=== PATIENT | female | born 1975 | race African-American/Black ===

== ENCOUNTER → 2016-11-06 | Emergency (ER) | payer MEDICAID ==
[~2016-11-06] VITALS: Ht 157.5 cm; Wt 68.0 kg
[~2016-11-06] MED LIST: ABILIFY5 MG PO; BENADRYL25 MG PO; CIPRO500 MG PO; CLINDAMYCIN HC300 MG ORAL; LAMICTAL25 MG ORAL; NORCO 5-325 TA1 EACH PO; OCUFLOX5 ML OP; OMEPRAZOLE20 M2 ORAL; PEPCID40 MG PO; POLYTRIM EYE DR10 ML OP; RANITIDINE HCL150 MG PO; TRAMADOL HCL50 MG ORAL; ZOFRAN4 MG ORAL
[2016-11-06 09:40] VITALS: BP 99/67
[2016-11-06 10:50] LABS: BASOPHILS % (AUTO) 1.6 % (0.0-2.0); EOSINOPHILS % (AUTO) 0.2 % (0.0-3.0); LYMPHOCYTES % (AUTO) 22.1 % (20.0-45.0); MEAN CORPUSCULAR HEMOGLOBIN 30.8 PG (27.0-31.0); MEAN CORPUSCULAR VOLUME 93 FL (80-99); MEAN PLATELET VOLUME 5.9 FL (6.5-10.1); MONOCYTES % (AUTO) 5.4 % (1.0-10.0); NEUTROPHILS % (AUTO) 70.7 % (45.0-75.0); PLATELET COUNT 298 K/UL (150-450); RED BLOOD COUNT 4.86 M/UL (4.20-5.40); RED CELL DISTRIBUTION WIDTH 14.5 % (11.6-14.8); WHITE BLOOD COUNT 9.9 K/UL (4.8-10.8)
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
== END | disposition home or self-care (01) ==
LOC: EMR 10:31
DX: L03.211 Cellulitis of face (principal); Z88.6 Allergy status to analgesic agent; R51 Headache; M54.30 Sciatica, unspecified side
CPT/HCPCS: 36415; 85025; 96374; S0077

== ENCOUNTER 2018-03-04 10:05 | Emergency (ER) | payer MEDICAID ==
[~2018-03-04] VITALS: Ht 157.5 cm; Wt 67.6 kg
[2018-03-04] MEDS ORDERED: Mylanta II UD 30ml ORAL ONE (10:45)
[2018-03-04] MEDS ORDERED: Dicyclomine HCl 10mg/5ml oral soln ORAL ONE (10:45)
[2018-03-04] MEDS ORDERED: Lidocaine 2% Visc 15ml soln ORAL ONE (10:45)
--- NOTE | 2018-03-04 11:01 | Emergency Room Report ---
History of Present Illness General Chief Complaint: Nausea Source: Patient Present Illness HPI 42-year-old male complaining of abdominal pain with nausea and vomiting. Patient states she was prescribed ibuprofen by her dentist after she had a tooth procedure last week. States she she has acid reflux and knows not to take ibuprofen but took it anyways. Notes epigastric burning pain, 9 out of 10 , nonradiating with multiple episodes of nausea and vomiting. Denies chest pain or shortness of breath. Denies fevers or chills. No other aggravating relieving factors. Denies any other associated symptoms Allergies: Coded Allergies: IBUPROFEN (Verified Allergy, Severe, 09/13/13) Patient History Past Medical History: ulcer, GERD Past Surgical History: none Pertinent Family History: none Social History: Denies: smoking, alcohol use, drug use Now: No Immunizations: UTD Reviewed Nursing Documentation: PMH: Agreed; PSxH: Agreed Nursing Documentation-PMH Past Medical History: No History, Except For Hx Cardiac Problems: Yes - anemia Hx Cancer: No Hx Gastrointestinal Problems: Yes - ulcer Hx Neurological Problems: Yes - sciatica, numbness , tingling hands and feet Hx Headaches: Yes Review of Systems All Other Systems: negative except mentioned in HPI Physical Exam Vital Signs Date Time Temp Pulse Resp B/P (MAP) Pulse Ox O2 Delivery O2 Flow Rate FiO2 03/04/18 10:14 98.3 98 18 114/59 97 Room Air 98.2 Sp02 EP Interpretation: reviewed, normal General Appearance: no apparent distress, alert, GCS 15, non-toxic Head: normocephalic, atraumatic Eyes: bilateral eye normal inspection, bilateral eye PERRL ENT: hearing grossly normal, normal pharynx, no angioedema, normal voice Neck: full range of motion, supple/symm/no masses Respiratory: chest non-tender, lungs clear, normal breath sounds, speaking full sentences Cardiovascular #1: regular rate, rhythm, no edema Cardiovascular #2: 2+ carotid (R), 2+ carotid (L), 2+ radial (R), 2+ radial (L) , 2+ dorsalis pedis (R), 2+ dorsalis pedis (L) Gastrointestinal: normal bowel sounds, soft, non-distended, no guarding, no rebound, tenderness - epigastric Rectal: deferred Genitourinary: normal inspection, no CVA tenderness Musculoskeletal: back normal, gait/station normal, normal range of motion, non- tender Neurologic: alert, oriented x3, responsive, motor strength/tone normal, sensory intact, speech normal Psychiatric: judgement/insight normal, memory normal, mood/affect normal, no suicidal/homicidal ideation Reflexes: 3+ bicep (R), 3+ bicep (L), 3+ tricep (R), 3+ tricep (L), 3+ knee (R) , 3+ knee (L) Skin: normal color, no rash, warm/dry, well hydrated Lymphatic: no adenopathy Medical Decision Making Diagnostic Impression: Primary Impression: Gastritis Qualified Codes: K29.01 - Acute gastritis with bleeding ER Course Hospital Course 42-year-old F presents to ED with epigastric pain with N/V. differential diagnosis: gastritis, SBO, cholecystits Clinical course Patient placed on stretcher. On secured entrance monitor. After initial history and physical I ordered labs, IV fluids, Zofran and pepcid Labs - no leukocytosis, no electrolyte abnormalities, LFTs normal, UA unremarkable continue to have nausea and vomiting, some pain. I ordered additional Zofran, Protonix, morphine x 1 Upon reassessment, patient states pain has improved. Symptoms likely exacerbated by taking ibuprofen which she knows not to take because of her gastritis. Patient safe for discharge I feel this is a highly complex case requiring extensive working including EKG/ Rhythm strip, Xray/CT/US, Blood/urine lab work, repeat exams while in ED, and administration of strong opiates/narcotics for pain control, admission to hospital or close patient follow up. Diagnosis - gastritis Stable and discharged to home with prescriptions for Zantac, Zofran. Followup with PMD. Return to ED if symptoms recur or worsen Labs Test 03/04/18 10:42 White Blood Count 8.8 K/UL (4.8-10.8) Red Blood Count 4.83 M/UL (4.20-5.40) Hemoglobin 14.4 G/DL (12.0-16.0) Hematocrit 44.9 % (37.0-47.0) Mean Corpuscular Volume 93 FL (80-99) Mean Corpuscular Hemoglobin 29.8 PG (27.0-31.0) Mean Corpuscular Hemoglobin Concent 32.0 G/DL (32.0-36.0) Red Cell Distribution Width 13.6 % (11.6-14.8) Platelet Count 257 K/UL (150-450) Mean Platelet Volume 5.4 FL (6.5-10.1) Neutrophils (%) (Auto) 66.4 % (45.0-75.0) Lymphocytes (%) (Auto) 28.4 % (20.0-45.0) Monocytes (%) (Auto) 3.5 % (1.0-10.0) Eosinophils (%) (Auto) 0.6 % (0.0-3.0) Basophils (%) (Auto) 1.2 % (0.0-2.0) Urine Color Yellow Urine Appearance Slightly cloudy Urine pH 6 (4.5-8.0) Urine Specific [place] 1.020 (1.005-1.035) Urine Protein 2+ (NEGATIVE) Urine Glucose (UA) Negative (NEGATIVE) Urine Ketones 4+ (NEGATIVE) Urine Occult Blood 3+ (NEGATIVE) Urine Nitrite Negative (NEGATIVE) Urine Bilirubin Negative (NEGATIVE) Urine Urobilinogen 1 MG/DL (0.0-1.0) Urine Leukocyte Esterase 2+ (NEGATIVE) Urine RBC 15-20 /HPF (0 - 2) Urine WBC 2-4 /HPF (0 - 2) Urine Squamous Epithelial Cells Many /LPF (NONE/OCC) Urine Bacteria Few /HPF (NONE) Urine Mucus Moderate /LPF (NONE/OCC) Urine HCG, Qualitative Negative (NEGATIVE) Sodium Level 139 MMOL/L (136-145) Potassium Level 4.7 MMOL/L (3.5-5.1) Chloride Level 102 MMOL/L (98-107) Carbon Dioxide Level 25 MMOL/L (21-32) Anion Gap 12 mmol/L (5-15) Blood Urea Nitrogen 8 mg/dL (7-18) Creatinine 1.0 MG/DL (0.55-1.30) Estimat Glomerular Filtration Rate > 60 mL/min (>60) Glucose Level 98 MG/DL (74-106) Calcium Level 10.2 MG/DL (8.5-10.1) Total Bilirubin 0.6 MG/DL (0.2-1.0) Aspartate Amino Transf (AST/SGOT) 25 U/L (15-37) Alanine Aminotransferase (ALT/SGPT) 19 U/L (12-78) Alkaline Phosphatase 65 U/L (46-116) Total Protein 8.9 G/DL (6.4-8.2) Albumin 4.0 G/DL (3.4-5.0) Globulin 4.9 g/dL Albumin/Globulin Ratio 0.8 (1.0-2.7) Lipase 45 U/L (73-393) Last Vital Signs Date Time Temp Pulse Resp B/P (MAP) Pulse Ox O2 Delivery O2 Flow Rate FiO2 03/04/18 10:14 98.3 98 18 114/59 97 Room Air 98.2 Status: improved Disposition: HOME, SELF-CARE Condition: Stable Scripts Ranitidine Hcl* (ZANTAC*) 150 Mg Tablet 150 MG ORAL TWICE A DAY, #30 TAB Prov: Shady Sinclair MD 03/04/18 Ondansetron Odt* (ZOFRAN ODT*) 4 Mg Tab.rapdis 4 MG BC EVERY 6 HOURS PRN for Nausea & Vomiting, #30 TAB 0 Refills Prov: Shady Sinclair MD 03/04/18 Shady Sinclair MD March 04, 2018 11:01
[2018-03-04 11:02] VITALS: BP 114/59
[2018-03-04 11:12] LABS: BASOPHILS % (AUTO) 1.2 % (0.0-2.0); EOSINOPHILS % (AUTO) 0.6 % (0.0-3.0); HEMATOCRIT 44.9 % (37.0-47.0); HEMOGLOBIN 14.4 G/DL (12.0-16.0); LYMPHOCYTES % (AUTO) 28.4 % (20.0-45.0); MEAN CORPUSCULAR VOLUME 93 FL (80-99); MONOCYTES % (AUTO) 3.5 % (1.0-10.0); NEUTROPHILS % (AUTO) 66.4 % (45.0-75.0); PLATELET COUNT 257 K/UL (150-450); RED BLOOD COUNT 4.83 M/UL (4.20-5.40); RED CELL DISTRIBUTION WIDTH 13.6 % (11.6-14.8); WHITE BLOOD COUNT 8.8 K/UL (4.8-10.8)
[2018-03-04 11:17] LABS: APPEARANCE,URINE SLIGHTLY CLOUDY; BILIRUBIN, URINE NEGATIVE (NEGATIVE); GLUCOSE, URINE (UA) NEGATIVE (NEGATIVE); KETONES,URINE 4+ (NEGATIVE); LEUKOCYTE ESTERASE ,URINE 2+ (NEGATIVE); NITRITE,URINE NEGATIVE (NEGATIVE); PH,URINE 6 (4.5-8.0); PROTEIN,URINE 2+ (NEGATIVE); UROBILINOGEN,URINE 1 MG/DL (0.0-1.0)
[2018-03-04 11:21] LABS: COLOR,URINE YELLOW
[2018-03-04 11:23] LABS: ANION GAP 12 mmol/L (5-15); BLOOD UREA NITROGEN 8 mg/dL (7-18); CALCIUM 10.2 MG/DL (8.5-10.1); CARBON DIOXIDE 25 MMOL/L (21-32); CHLORIDE 102 MMOL/L (98-107); POTASSIUM 4.7 MMOL/L (3.5-5.1); SODIUM 139 MMOL/L (136-145)
[2018-03-04 11:35] LABS: ALANINE AMINOTRANSFERASE 19 U/L (12-78); ALBUMIN/GLOBULIN RATIO 0.8 (1.0-2.7); ALKALINE PHOSPHATASE 65 U/L (46-116); ASPARTATE AMINO TRANSFERASE 25 U/L (15-37); BILIRUBIN,TOTAL 0.6 MG/DL (0.2-1.0)
[2018-03-04] MEDS ORDERED: Morphine Sulfate 4mg/ml Inj ONE (11:41)
[2018-03-04] MEDS ORDERED: Morphine Sulfate 4mg/ml Inj IVP ONE (11:45)
[2018-03-04] MEDS ORDERED: Pantoprazole Inj IVP ONE (11:45)
[2018-03-04] MEDS ORDERED: ONDANSETRON ODT4 MG BC (12:15)
[2018-03-04] MEDS ORDERED: RANITIDINE HCL150 MG ORAL (12:15)
[2018-03-04 14:01] VITALS: BP 114/59
== END 2018-03-04 12:30 | disposition home or self-care (01) ==
LOC: EMR 11:56
DX: K29.70 Gastritis, unspecified, without bleeding (principal); Z88.6 Allergy status to analgesic agent
CPT/HCPCS: 36415; 80053; 81003; 81025; 83690; 85025; 96361; 96374; 96375; 96376; 99284; C9113; J2270; J2405; S0028

== ENCOUNTER 2018-05-28 19:23 | Emergency (ER) | payer MEDICAID ==
[~2018-05-28] VITALS: Ht 157.5 cm; Wt 67.6 kg
[~2018-05-28 19:23] MED LIST changes: +ONDANSETRON ODT4 MG BC; +RANITIDINE HCL150 MG ORAL
[2018-05-28 19:50] VITALS: BP 115/77
[2018-05-28] MEDS ORDERED: ZYRTEC10 MG ORAL (20:26)
[2018-05-28] MEDS ORDERED: FLONASE ALLERG9.9 ML NS (20:26)
[2018-05-28] MEDS ORDERED: PREDNISONE20 M1 PO (20:26)
--- NOTE | 2018-05-28 20:27 | Emergency Room Report ---
History of Present Illness General Chief Complaint: Earache Source: Patient Present Illness HPI 43-year-old female presents for right ear pain and pressure for 2 days. Associated symptoms include sore throat along with right ear pressure and pain that is worse with swallowing. Patient states that initial time of illness she had experienced nausea and vomiting and diarrhea which has since subsided. Patient is not taking medication for her symptoms and has no other physical please of this time.Denies any current n/v/f/c/d, abd pain, back pain, neck pain , photophobia, phonophobia, CP, SOB or headache. Allergies: Coded Allergies: IBUPROFEN (Verified Allergy, Severe, 09/13/13) Patient History Past Medical History: see triage record Last Menstrual Period: 05/23/18 Now: No Reviewed Nursing Documentation: PMH: Agreed; PSxH: Agreed Nursing Documentation-PMH Hx Cardiac Problems: Yes - anemia Hx Cancer: No Hx Gastrointestinal Problems: Yes - ulcer Hx Neurological Problems: Yes - sciatica, numbness , tingling hands and feet Hx Headaches: Yes Review of Systems All Other Systems: negative except mentioned in HPI Physical Exam Vital Signs Date Time Temp Pulse Resp B/P (MAP) Pulse Ox O2 Delivery O2 Flow Rate FiO2 05/28/18 19:30 98.6 82 18 127/80 98 Room Air 98.6 General Appearance: no apparent distress, alert, GCS 15, non-toxic Head: normocephalic, atraumatic Eyes: bilateral eye normal inspection, bilateral eye PERRL ENT: hearing grossly normal, normal pharynx, no angioedema, normal voice, TMs + canals normal, uvula midline Neck: full range of motion, supple, no meningismus, supple/symm/no masses Respiratory: chest non-tender, lungs clear, normal breath sounds, speaking full sentences Cardiovascular #1: regular rate, rhythm, no edema Gastrointestinal: normal bowel sounds, non tender, soft, non-distended, no guarding, no rebound Musculoskeletal: back normal, gait/station normal Neurologic: alert, oriented x3, responsive, motor strength/tone normal, sensory intact, speech normal Skin: normal color, no rash, warm/dry, well hydrated Lymphatic: adenopathy - Right cervical anterior lymphnodes Medical Decision Making PA Attestation Dr. Schofield my supervising physician with whom patient management has been discussed with. Diagnostic Impression: Primary Impression: Acute viral syndrome ER Course Pt. presents to the ED c/o Right ear pain and right sided sore throat Differential includes viral pharyngitis, AOM, AOE, viral syndrome, bacterial pharyngitis, peritonsillar abscess, tonsils stone, and meningitis Vital signs: are WNL, pt. is afebrile H&PE are most consistent with Viral syndrome ORDERS: none required at this time, the diagnosis is clinical ED INTERVENTIONS: none required at this time. DISCHARGE: At this time pt. is stable for d/c to home. Will provide printed patient care instructions, and any necessary prescriptions. Care plan and follow up instructions have been discussed with the patient prior to discharge. Last Vital Signs Date Time Temp Pulse Resp B/P (MAP) Pulse Ox O2 Delivery O2 Flow Rate FiO2 05/28/18 19:30 98.6 82 18 127/80 98 Room Air 98.6 Disposition: HOME, SELF-CARE Condition: Stable Scripts Prednisone (Prednisone) 20 Mg Tablet 20 MG PO DAILY for 3 Days, #3 TAB Prov: Olga Londono 05/28/18 Cetirizine Hcl* (ZYRTEC*) 10 Mg Tablet 10 MG ORAL DAILY, #10 TAB 0 Refills Prov: Olga Londono 05/28/18 Fluticasone Propionate (Flonase Allergy Relief) 9.9 Ml [place].susp 2 SPRAYS NS DAILY for 7 Days, #10 ML Prov: Olga Londono 05/28/18 Patient Instructions: Viral Respiratory Infection Additional Instructions: Take medication as directed. Stop medication if any rash develops and return to clinic immediately. Go to the ER if any SOB or adverse reactions occur from medication. Use Tylenol if any fever or pain develop. Return sooner if no improvement within 3-5 days. If sxs worsen or don't improve, please return sooner. Go to the ER if you develop SOB, CP, Rash, photophobia, neck pain, throat swelling occur, go to the ER immediately. Olga Londono May 28, 2018 20:27
[2018-05-28 22:20] VITALS: BP_SYST 137; BP_SYST 138; BP_DIAS 85
[2018-05-28] MEDS ORDERED: Acetaminophen 500mg (ES) tab ORAL ONE (22:30)
== END 2018-05-28 22:30 | disposition home or self-care (01) ==
LOC: EMR 20:49
DX: B34.9 Viral infection, unspecified (principal); Z87.11 Personal history of peptic ulcer disease; Z88.6 Allergy status to analgesic agent
CPT/HCPCS: 99284

== ENCOUNTER 2018-08-06 17:11 | Emergency (ER) | payer MEDICAID ==
[~2018-08-06] VITALS: Ht 157.5 cm; Wt 64.4 kg
[~2018-08-06 17:11] MED LIST changes: +FLONASE ALLERG9.9 ML NS; +PREDNISONE20 M1 PO; +ZYRTEC10 MG ORAL
[2018-08-06] MEDS ORDERED: Lidocaine 2% Visc 15ml soln ORAL ONE (17:30)
[2018-08-06] MEDS ORDERED: Mylanta II UD 30ml ORAL ONE (17:30)
[2018-08-06 17:42] VITALS: BP 149/86
--- NOTE | 2018-08-06 17:48 | Emergency Room Report ---
History of Present Illness General Chief Complaint: Abdominal Pain Source: Medical Record Present Illness HPI 43 YO Female presents to the ED C/O 07/16 in severity epigastric abdominal pain. with nausea and vomiting since Saturday. pt. denies fevers, chills recent travel or other ill contacts. Pt. reports that she was smoking marijuana and drinking alcohol prior to onset of her symptoms. Patient denies blood in the vomit or in her stool. Patient denies black tarry stools. Patient does report history of gastritis. She states that she has been unable to keep down food or water she also states that she attempted to take Zofran at home which was unsuccessful as she threw it up. Pt. denies . Denies CP, SOB, palpitations, Sudden onset [place], recent Head Trauma, Dizziness, or syncope. Allergies: Coded Allergies: IBUPROFEN (Verified Allergy, Severe, 09/13/13) Patient History Past Medical History: see triage record Past Surgical History: none Pertinent Family History: none Last Menstrual Period: 07/23/18 Reviewed Nursing Documentation: PMH: Agreed; PSxH: Agreed Nursing Documentation-PMH Past Medical History: No History, Except For Hx Cardiac Problems: No - anemia Hx Cancer: No Hx Gastrointestinal Problems: No - ulcer Hx Neurological Problems: No - sciatica, numbness , tingling hands and feet Hx Headaches: Yes Review of Systems All Other Systems: negative except mentioned in HPI Physical Exam Vital Signs Date Time Temp Pulse Resp B/P (MAP) Pulse Ox O2 Delivery O2 Flow Rate FiO2 08/06/18 17:15 82 18 149/86 98 Room Air Sp02 EP Interpretation: reviewed, normal General Appearance: alert, GCS 15, non-toxic, moderate distress Head: normocephalic, atraumatic Eyes: bilateral eye normal inspection, bilateral eye PERRL ENT: hearing grossly normal, normal voice Neck: full range of motion Respiratory: chest non-tender, lungs clear, normal breath sounds, speaking full sentences Cardiovascular #1: regular rate, rhythm Gastrointestinal: normal bowel sounds, soft, no peritonitis, non-distended, no guarding, tenderness - generalized ttp Rectal: deferred Genitourinary: normal inspection, no CVA tenderness Musculoskeletal: back normal, gait/station normal, normal range of motion, non- tender Neurologic: alert, oriented x3, responsive, motor strength/tone normal, sensory intact, normal gait, speech normal, grossly normal Psychiatric: judgement/insight normal Skin: normal color, no rash, warm/dry, well hydrated Medical Decision Making PA Attestation Dr. Brown is my supervising Physician whom patient management has been discussed with. Diagnostic Impression: Primary Impression: Dehydration, mild Additional Impression: Vomiting Qualified Codes: R11.2 - Nausea with vomiting, unspecified ER Course 43 YO Female presents to the ED C/O 07/16 in severity epigastric abdominal pain. with nausea and vomiting since Saturday. pt. denies fevers, chills recent travel or other ill contacts. Pt. reports that she was smoking marijuana and drinking alcohol prior to onset of her symptoms. Patient denies blood in the vomit or in her stool. Patient denies black tarry stools. Patient does report history of gastritis. She states that she has been unable to keep down food or water she also states that she attempted to take Zofran at home which was unsuccessful as she threw it up. Pt. denies . Denies CP, SOB, palpitations, Sudden onset [place], recent Head Trauma, Dizziness, or syncope. Ddx considered but are not limited to Acute appy, diarrhea, hypovolemia/ dehydration, UC, PUD, GE, pancreatitis, gallstones, , cannabinoid induced vomiting. Vital signs: are WNL, pt. 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 ORDERS: -CBC, CMP, lipase: unremarkable. elevated WBC's at 11.7 -UDS and Hcg: Pt.was not able to provide urine, and wanted to be D/c rather than wait for completion of work-up including urine testing. 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 -Pt. is feeling better and is requesting to be d/c to go home without providing Urine. urine results for the most part would not change my management. will d/c with rx that are safe during just in case that is the cause of her symptoms. DISCHARGE: At this time pt. is stable for d/c to home. Will provide printed patient care instructions, and any necessary prescriptions. Care plan and follow up instructions have been discussed with the patient prior to discharge. Labs Test 08/06/18 17:30 White Blood Count 11.7 K/UL (4.8-10.8) Red Blood Count 4.73 M/UL (4.20-5.40) Hemoglobin 14.6 G/DL (12.0-16.0) Hematocrit 44.4 % (37.0-47.0) Mean Corpuscular Volume 94 FL (80-99) Mean Corpuscular Hemoglobin 30.9 PG (27.0-31.0) Mean Corpuscular Hemoglobin Concent 32.9 G/DL (32.0-36.0) Red Cell Distribution Width 14.0 % (11.6-14.8) Platelet Count 342 K/UL (150-450) Mean Platelet Volume 5.5 FL (6.5-10.1) Neutrophils (%) (Auto) 83.4 % (45.0-75.0) Lymphocytes (%) (Auto) 14.0 % (20.0-45.0) Monocytes (%) (Auto) 1.7 % (1.0-10.0) Eosinophils (%) (Auto) 0.1 % (0.0-3.0) Basophils (%) (Auto) 0.8 % (0.0-2.0) Sodium Level 141 MMOL/L (136-145) Potassium Level 4.0 MMOL/L (3.5-5.1) Chloride Level 105 MMOL/L (98-107) Carbon Dioxide Level 27 MMOL/L (21-32) Anion Gap 9 mmol/L (5-15) Blood Urea Nitrogen 10 mg/dL (7-18) Creatinine 1.1 MG/DL (0.55-1.30) Estimat Glomerular Filtration Rate 54.5 mL/min (>60) Glucose Level 141 MG/DL (74-106) Calcium Level 9.9 MG/DL (8.5-10.1) Total Bilirubin 0.8 MG/DL (0.2-1.0) Aspartate Amino Transf (AST/SGOT) 25 U/L (15-37) Alanine Aminotransferase (ALT/SGPT) 20 U/L (12-78) Alkaline Phosphatase 77 U/L (46-116) Total Protein 8.8 G/DL (6.4-8.2) Albumin 4.1 G/DL (3.4-5.0) Globulin 4.7 g/dL Albumin/Globulin Ratio 0.9 (1.0-2.7) Lipase 47 U/L (73-393) Last Vital Signs Date Time Temp Pulse Resp B/P (MAP) Pulse Ox O2 Delivery O2 Flow Rate FiO2 08/06/18 17:15 82 18 149/86 98 Room Air Disposition: HOME, SELF-CARE Condition: Stable Scripts Promethazine Hcl* (PHENERGAN*) 25 Mg Tablet 25 MG ORAL Q6H, #9 TAB 0 Refills Prov: Ricarda Reynoso 08/06/18 Patient Instructions: Abdominal Pain, Adult, Nausea and Vomiting, Adult, Easy- to-Read Additional Instructions: Take medications as directed. Refrain from Cannabis use. Follow up with a Primary Care Provider in 3-5 days, even if your symptoms have resolved. Return sooner to ED if new symptoms occur, or current symptoms become worse. - Please note that this Emergency Department Report was dictated using [employer] informatics technology software, occasionally this can lead to erroneous entry secondary to interpretation by the dictation equipment. Ricarda Reynoso Aug 06, 2018 17:48
[2018-08-06 17:50] LABS: ANION GAP 9 mmol/L (5-15); BLOOD UREA NITROGEN 10 mg/dL (7-18); CALCIUM 9.9 MG/DL (8.5-10.1); CARBON DIOXIDE 27 MMOL/L (21-32); CHLORIDE 105 MMOL/L (98-107); CREATININE 1.1 MG/DL (0.55-1.30); SODIUM 141 MMOL/L (136-145)
[2018-08-06 17:54] LABS: BASOPHILS % (AUTO) 0.8 % (0.0-2.0); EOSINOPHILS % (AUTO) 0.1 % (0.0-3.0); HEMATOCRIT 44.4 % (37.0-47.0); HEMOGLOBIN 14.6 G/DL (12.0-16.0); MEAN CORPUSCULAR VOLUME 94 FL (80-99); MONOCYTES % (AUTO) 1.7 % (1.0-10.0); NEUTROPHILS % (AUTO) 83.4 % (45.0-75.0); PLATELET COUNT 342 K/UL (150-450); RED BLOOD COUNT 4.73 M/UL (4.20-5.40); WHITE BLOOD COUNT 11.7 K/UL (4.8-10.8)
[2018-08-06 17:55] LABS: ALANINE AMINOTRANSFERASE 20 U/L (12-78); ALBUMIN 4.1 G/DL (3.4-5.0); ALBUMIN/GLOBULIN RATIO 0.9 (1.0-2.7); ALKALINE PHOSPHATASE 77 U/L (46-116); ASPARTATE AMINO TRANSFERASE 25 U/L (15-37); BILIRUBIN,TOTAL 0.8 MG/DL (0.2-1.0)
[2018-08-06] MEDS ORDERED: LORazepam Inj 2mg/ml 1ml IV ONE (18:15)
[2018-08-06] MEDS ORDERED: PHENERGAN25 M1 ORAL (19:22)
[2018-08-06 20:10] VITALS: BP 138/81
== END 2018-08-06 20:10 | disposition home or self-care (01) ==
LOC: EMR 18:01
DX: E86.0 Dehydration (principal); R11.2 Nausea with vomiting, unspecified; R10.13 Epigastric pain; Z88.6 Allergy status to analgesic agent
CPT/HCPCS: 80053; 83690; 85025; 96361; 96374; 96375; 99284; J2405; S0028

== ENCOUNTER 2018-09-22 19:40 | Emergency (ER) | payer MEDICAID ==
[~2018-09-22] VITALS: Ht 157.5 cm; Wt 72.6 kg
[~2018-09-22 19:40] MED LIST changes: +DICYCLOMINE HCL10 MG PO; +PHENERGAN25 M1 ORAL
[2018-09-22 20:49] VITALS: BP 132/90
--- NOTE | 2018-09-22 21:04 | Emergency Room Report ---
History of Present Illness General Chief Complaint: Abdominal Pain Source: Patient Present Illness HPI Patient presents with reports of epigastric pain nausea vomiting Patient feels that her stomach is on fire is what she reports denies any shortness of breath denies any back or flank pain Symptoms ongoing for the past several days Denies any lower abdominal pain patient points to the epigastric region for the discomfort Has not had previous endoscopy Reports other imaging study which sounds to be oral contrast CT There was also reported initially of tinge of blood in her vomit Allergies: Coded Allergies: IBUPROFEN (Verified Allergy, Severe, 09/13/13) Patient History Past Medical History: see triage record Pertinent Family History: none Last Menstrual Period: 08/2018 Reviewed Nursing Documentation: PMH: Agreed; PSxH: Agreed Nursing Documentation-PMH Past Medical History: No History, Except For Hx Cardiac Problems: No - anemia Hx Cancer: No Hx Gastrointestinal Problems: Yes - ULCERS Hx Neurological Problems: No - sciatica, numbness , tingling hands and feet Hx Headaches: Yes Review of Systems All Other Systems: negative except mentioned in HPI Physical Exam Vital Signs Date Time Temp Pulse Resp B/P (MAP) Pulse Ox O2 Delivery O2 Flow Rate FiO2 09/22/18 20:06 98.2 90 16 132/90 95 Room Air Sp02 EP Interpretation: reviewed, normal General Appearance: well appearing, no apparent distress Head: normocephalic, atraumatic Eyes: bilateral eye PERRL, bilateral eye EOMI ENT: hearing grossly normal, normal pharynx, TMs + canals normal, uvula midline Neck: full range of motion, supple, no meningismus, no bony tend Respiratory: lungs clear, normal breath sounds, no rhonchi, no respiratory distress, no retraction, no accessory muscle use Cardiovascular #1: normal peripheral pulses, regular rate, rhythm, no edema, no gallop, no JVD, no murmur Gastrointestinal: normal bowel sounds, non tender, soft, no mass, no organomegaly, non-distended, no guarding, no hernia, no pulsatile mass, no rebound Genitourinary: no CVA tenderness Musculoskeletal: normal inspection Neurologic: oriented x3, responsive, washing machine striper III-XII nml as tested, motor strength/ tone normal, sensory intact Psychiatric: mood/affect normal Skin: normal color, no rash, warm/dry, palpation normal Lymphatic: normal inspection, no adenopathy Medical Decision Making Diagnostic Impression: Primary Impression: UTI (urinary tract infection) Additional Impression: Nausea and vomiting in adult patient ER Course With the patient's history and examination, multiple differentials considered, including but not limited to , ectopic , ovarian torsion, gastritis, cholecystitis, pancreatitis, appendicitis Patient's blood work initiated Further acute intervention with multiple IV medications provided Patient also reported to the nurse that she wanted some assistance in helping and benzodiazepine was provided On repeat evaluation patient reports that she is not happy that she did not receive her usual morphine dosing, she also would like to go to sleep and is not happy regarding not receiving further medications for that I discussed with her the importance of close outpatient follow-up, her statement that she did not receive her usual morphine dosing is concerning to me Patient was initially being placed in for admission for UTI questionable early pyelonephritis and decreased oral intake, however patient reports that she wants to go home does not want to be here She remains hemodynamically stable and was discharged on antibiotics, Labs Test 09/22/18 21:00 09/22/18 21:15 White Blood Count 11.3 K/UL (4.8-10.8) Red Blood Count 4.92 M/UL (4.20-5.40) Hemoglobin 14.9 G/DL (12.0-16.0) Hematocrit 45.7 % (37.0-47.0) Mean Corpuscular Volume 93 FL (80-99) Mean Corpuscular Hemoglobin 30.4 PG (27.0-31.0) Mean Corpuscular Hemoglobin Concent 32.7 G/DL (32.0-36.0) Red Cell Distribution Width 13.6 % (11.6-14.8) Platelet Count 314 K/UL (150-450) Mean Platelet Volume 6.3 FL (6.5-10.1) Neutrophils (%) (Auto) 76.7 % (45.0-75.0) Lymphocytes (%) (Auto) 19.7 % (20.0-45.0) Monocytes (%) (Auto) 2.8 % (1.0-10.0) Eosinophils (%) (Auto) 0.1 % (0.0-3.0) Basophils (%) (Auto) 0.7 % (0.0-2.0) Prothrombin Time 10.8 SEC (9.30-11.50) Prothromb Time International Ratio 1.0 (0.9-1.1) Activated Partial Thromboplast Time 29 SEC (23-33) Sodium Level 142 MMOL/L (136-145) Potassium Level 3.4 MMOL/L (3.5-5.1) Chloride Level 101 MMOL/L (98-107) Carbon Dioxide Level 29 MMOL/L (21-32) Anion Gap 12 mmol/L (5-15) Blood Urea Nitrogen 8 mg/dL (7-18) Creatinine 1.0 MG/DL (0.55-1.30) Estimat Glomerular Filtration Rate > 60 mL/min (>60) Glucose Level 113 MG/DL (74-106) Calcium Level 10.1 MG/DL (8.5-10.1) Total Bilirubin 0.7 MG/DL (0.2-1.0) Aspartate Amino Transf (AST/SGOT) 15 U/L (15-37) Alanine Aminotransferase (ALT/SGPT) 19 U/L (12-78) Alkaline Phosphatase 66 U/L (46-116) Troponin I 0.008 ng/mL (0.000-0.056) Total Protein 8.7 G/DL (6.4-8.2) Albumin 3.8 G/DL (3.4-5.0) Globulin 4.9 g/dL Albumin/Globulin Ratio 0.8 (1.0-2.7) Lipase 50 U/L (73-393) Human Chorionic Gonadotropin, Quant 1 mIU/mL (1-6) Urine Color Brown Urine Appearance Slightly cloudy Urine pH 5 (4.5-8.0) Urine Specific [place] 1.025 (1.005-1.035) Urine Protein 2+ (NEGATIVE) Urine Glucose (UA) Negative (NEGATIVE) Urine Ketones 3+ (NEGATIVE) Urine Blood 3+ (NEGATIVE) Urine Nitrite Positive (NEGATIVE) Urine Bilirubin Negative (NEGATIVE) Urine Urobilinogen 1 MG/DL (0.0-1.0) Urine Leukocyte Esterase 1+ (NEGATIVE) Urine RBC 2-4 /HPF (0 - 2) Urine WBC 0-2 /HPF (0 - 2) Urine Squamous Epithelial Cells Occasional /LPF Urine Calcium Oxalate Crystals Few /LPF (NONE) Urine Bacteria Moderate /HPF (NONE) Urine Mucus Moderate /LPF (NONE/OCC) Last Vital Signs Date Time Temp Pulse Resp B/P (MAP) Pulse Ox O2 Delivery O2 Flow Rate FiO2 09/22/18 20:06 98.2 90 16 132/90 95 Room Air Status: improved Disposition: HOME, SELF-CARE Condition: Improved Scripts Ondansetron (Zofran) 4 Mg Tablet 4 MG ORAL Q8HR PRN for Nausea & Vomiting, #12 TAB Prov: Danny Seo DO 09/22/18 Cephalexin* (KEFLEX*) 500 Mg Capsule 500 MG ORAL EVERY 6 HOURS for 7 Days, CAP Prov: Danny Seo DO 09/22/18 Additional Instructions: Patient is provided with the discharge instructions notified to follow up with primary doctor in the next 2-3 days otherwise return to the er with any worsening symptoms. Please note that this report is being documented using [employer] technology. This can lead to erroneous entry secondary to incorrect interpretation by the dictating instrument. Danny Seo DO Sep 22, 2018 21:04
[2018-09-22] MEDS ORDERED: LORazepam Inj 2mg/ml 1ml IV ONE (21:30)
[2018-09-22 21:31] LABS: BASOPHILS % (AUTO) 0.7 % (0.0-2.0); EOSINOPHILS % (AUTO) 0.1 % (0.0-3.0); HEMATOCRIT 45.7 % (37.0-47.0); HEMOGLOBIN 14.9 G/DL (12.0-16.0); LYMPHOCYTES % (AUTO) 19.7 % (20.0-45.0); MEAN CORPUSCULAR VOLUME 93 FL (80-99); MONOCYTES % (AUTO) 2.8 % (1.0-10.0); NEUTROPHILS % (AUTO) 76.7 % (45.0-75.0); PLATELET COUNT 314 K/UL (150-450); RED BLOOD COUNT 4.92 M/UL (4.20-5.40); RED CELL DISTRIBUTION WIDTH 13.6 % (11.6-14.8); WHITE BLOOD COUNT 11.3 K/UL (4.8-10.8)
[2018-09-22 21:40] LABS: BILIRUBIN, URINE NEGATIVE (NEGATIVE); COLOR,URINE BROWN; GLUCOSE, URINE (UA) NEGATIVE (NEGATIVE); KETONES,URINE 3+ (NEGATIVE); LEUKOCYTE ESTERASE ,URINE 1+ (NEGATIVE); NITRITE,URINE POSITIVE (NEGATIVE); PH,URINE 5 (4.5-8.0); PROTEIN,URINE 2+ (NEGATIVE); UROBILINOGEN,URINE 1 MG/DL (0.0-1.0)
[2018-09-22 21:41] LABS: APPEARANCE,URINE SLIGHTLY CLOUDY
[2018-09-22 21:51] LABS: ANION GAP 12 mmol/L (5-15); BLOOD UREA NITROGEN 8 mg/dL (7-18); CALCIUM 10.1 MG/DL (8.5-10.1); CARBON DIOXIDE 29 MMOL/L (21-32); CHLORIDE 101 MMOL/L (98-107); POTASSIUM 3.4 MMOL/L (3.5-5.1); SODIUM 142 MMOL/L (136-145)
[2018-09-22 21:55] LABS: ALANINE AMINOTRANSFERASE 19 U/L (12-78); ALBUMIN 3.8 G/DL (3.4-5.0); ALBUMIN/GLOBULIN RATIO 0.8 (1.0-2.7); ALKALINE PHOSPHATASE 66 U/L (46-116); ASPARTATE AMINO TRANSFERASE 15 U/L (15-37); BILIRUBIN,TOTAL 0.7 MG/DL (0.2-1.0)
[2018-09-22] MEDS ORDERED: cefTRIAXone 1 GM in NS 55 ML IVPB ONE (22:45)
[2018-09-22] MEDS ORDERED: ZOFRAN4 M1 ORAL (23:33)
[2018-09-22] MEDS ORDERED: CEPHALEXIN500 MG ORAL (23:33)
[2018-09-22 23:50] VITALS: BP 136/88
[2018-09-23 00:30] VITALS: BP 138/86
--- NOTE | 2018-09-23 09:59 | Diagnostic Imaging Report ---
Indication: Chest pain Technique: One view of the chest Comparison: none Findings: Lungs and pleural spaces are clear. Heart size is normal Impression: No acute process
--- NOTE | 2018-09-23 15:54 | Cardiology Report ---
APPROVED REPORT EKG Measurement Heart [id number] Normal sinus rhythm Normal ECG
== END 2018-09-23 00:30 | disposition home or self-care (01) ==
LOC: EMR 20:56 → CANBEDREQ 23:55 → EMR 09-23 00:30
DX: N39.0 Urinary tract infection, site not specified (principal); R11.2 Nausea with vomiting, unspecified; R10.13 Epigastric pain; Z88.6 Allergy status to analgesic agent
CPT/HCPCS: 36415; 71045; 80053; 81003; 83690; 84484; 84702; 85025; 85610; 85730; 86850; 86900; 86901; 87086; 93005; 96361; 96365; 96375; 99284; J0696; J2405; S0028